=== PATIENT | male | born 1990 | race Hispanic/Latino ===

== ENCOUNTER 2022-01-06 12:30 | Emergency (ER) | payer MEDICAID ==
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
[2022-01-06] MEDS ORDERED: ARIPiprazole 10 MG TAB PO ONE (18:04)
[2022-01-06] MEDS ORDERED: KETOROLAC 60 MG/2 ML INJ IM ONE (19:00)
[2022-01-06 22:53] VITALS: BP 139/77
== END 2022-01-06 22:53 | disposition home or self-care (01) ==
LOC: ED 12:30
DX: F20.9 Schizophrenia, unspecified (principal); M79.18 Myalgia, other site; Z91.14 Patient's other noncompliance with medication regimen; Z79.899 Other long term (current) drug therapy; Y04.8XXA Assault by other bodily force, initial encounter; Y93.89 Activity, other specified; Y92.89 Other specified places as the place of occurrence of the external cause; Y99.8 Other external cause status
CPT/HCPCS: 99284